=== PATIENT | female | born 1930 | race Caucasian/White ===

== ENCOUNTER 2019-09-01 06:43 | Inpatient (IN) ==
--- NOTE | 2019-08-25 14:02 | PAT Medication Instructions ---
Medication Instructions Date of Service August 25, 2019 Home Medications apixaban [Eliquis] 2.5 mg PO BID atenolol 12.5 mg PO BID cholecalciferol (vitamin D3) 25 mcg PO QAM diltiazem HCl [Cardizem CD] 120 mg PO QAM furosemide [Lasix] 20 mg PO DIRECTED furosemide [Lasix] 40 mg PO DIRECTED hydrocodone-acetaminophen [Bend] 0.5 tab PO Q6H PRN levothyroxine 50 mcg PO QAM polyethylene glycol 3350 [Miralax] 17 g PO DAILY PRN potassium chloride 20 meq PO DIRECTED pravastatin 20 mg PO Q OTHER DAY ASK your prescriber and surgeon apixaban [Eliquis] 2.5 mg PO BID DO NOT take the morning of surgery cholecalciferol (vitamin D3) 25 mcg PO QAM furosemide [Lasix] 20 mg PO DIRECTED furosemide [Lasix] 40 mg PO DIRECTED polyethylene glycol 3350 [Miralax] 17 g PO DAILY PRN potassium chloride 20 meq PO DIRECTED Take morning of surgery With a small sip of water, OTHERWISE NOTHING TO EAT OR DRINK AFTER MIDNIGHT: atenolol 12.5 mg PO BID diltiazem HCl [Cardizem CD] 120 mg PO QAM hydrocodone-acetaminophen [Bend] 0.5 tab PO Q6H PRN (if needed, may be taken up to four hours before surgery) levothyroxine 50 mcg PO QAM Take evening before surgery atenolol 12.5 mg PO BID hydrocodone-acetaminophen [Bend] 0.5 tab PO Q6H PRN (if needed) polyethylene glycol 3350 [Miralax] 17 g PO DAILY PRN (if needed) pravastatin 20 mg PO Q OTHER DAY (if scheduled) Other Notes If you have any questions please call us at [phone] or [phone] or [phone] or [phone]
--- NOTE | 2019-08-25 14:20 | Anesthesiology Consultation ---
Date of Service August 25, 2019 Assessment & Plan (1) Encounter for pre-operative examination: COVID Status: As of 08/24 assessment, patient denies travel to endemic area, known exposure/sick contacts, or symptoms of COVID19. Patient instructed to follow strict social distancing guidelines, wear a mask in public and avoid travel for 14 days prior to surgery. She lives in [facility] in independent living in an apartment. There have been no cases of COVID19 there . She states all residents have to wear masks at all times, and they have the option of eating at the community cafeteria but all tables are spread at least six feet apart. Preoperative COVID19 testing to be completed prior to surgery. Patient made aware to self-isolate as much as possible between COVID testing and surgery. Cardiology Clearance 08/24/19 = "considered a low to intermediate risk for her upcoming left laparoscopic nephrectomy...may hold Eliquis 2 days prior to procedure." Chart Review Chart Review: Acceptable Risk for Surgery and Patient seen in Pre Admission Testing Teaching & Discussion Instructed NPO after midnight before surgery, except medications with 15 cc of water. Medication instructions provided according to the PAT guidelines. History Surgery Operation Date: 09/01/19 08:10 Proposed Procedures p Left Hand Assisted Laparoscopic Nephrectomy - Manuel Concepcion MD Height/Weight Height: 4 ft 11 in Weight: 47.2 kg Allergies Allergy/AdvReac Type Severity Reaction Status Date / Time Gadolinium-Containing Allergy Unknown HIVES, Verified 08/18/19 15:13 Contrast Medi VASCULITIS latex Allergy Unknown REDNESS, Verified 08/18/19 15:13 RASH meperidine Allergy Unknown MOUTH Verified 08/18/19 15:13 SWELLING, FINGER SWELLING scopolamine Allergy Unknown FINGERS Verified 08/18/19 15:13 AND MOUTH SWELLING amitriptyline AdvReac Unknown INSOMNIA Verified 08/18/19 15:13 RESTLESSNESS baclofen AdvReac Unknown INSOMNIA, Verified 08/18/19 15:13 RESTLESSNESS cyclobenzaprine AdvReac Unknown INSOMNIA, Verified 08/18/19 15:13 RESTLESSNESS diphenhydramine AdvReac Unknown INSOMNIA, Verified 08/18/19 15:13 RESTLESSNESS fentanyl AdvReac Unknown THOUGHTS Verified 08/18/19 15:13 OF -WITH FENTANYL PATCH quinine AdvReac Unknown TINNITUS Verified 08/18/19 15:13 Medications Home Medications Medication Instructions Recorded Confirmed Last Taken apixaban [Eliquis] 2.5 mg PO BID 08/18/19 08/18/19 Unknown atenolol 12.5 mg PO BID 08/18/19 08/18/19 Unknown cholecalciferol (vitamin D3) 25 mcg PO QAM 08/18/19 08/18/19 Unknown [Vitamin D3] diltiazem HCl [Cardizem CD] 120 mg PO QAM 08/18/19 08/18/19 Unknown furosemide [Lasix] 20 mg PO DIRECTED 08/18/19 08/18/19 Unknown furosemide [Lasix] 40 mg PO DIRECTED 08/18/19 08/18/19 Unknown hydrocodone-acetaminophen [[place]] 0.5 tab PO Q6H PRN 08/18/19 08/18/19 Unknown levothyroxine 50 mcg PO QAM 08/18/19 08/18/19 Unknown polyethylene glycol 3350 [Miralax] 17 g PO DAILY PRN 08/18/19 08/18/19 Unknown potassium chloride 20 meq PO DIRECTED 08/18/19 08/18/19 Unknown pravastatin 20 mg PO Q OTHER DAY 08/18/19 08/18/19 Unknown Past Medical History Medical History Atrial fibrillation cardizem and eliquis no cardioversions> follows [facility] Basal cell carcinoma with mohs and other surgical removal> has had all over body High blood pressure Hypothyroidism Mitral valve prolapse Osteoarthritis Rheumatoid arthritis Shortness of breath related to thoracic duct problem Exercise / Class Metabolic Activity III < 4 Walking/Shop/Light housework (+mild SOB with ambulation 2/2 chronic pleural effusions; no chest pain) Past Surgical History Surgical History Carpal tunnel syndrome bilat H/O varicose vein stripping bilat H/O: section x3 H/O: hysterectomy History of cardiac cath over 5 yrs ago> no stents > History of colonoscopy History of esophagogastroduodenoscopy (EGD) x2 History of thoracic surgery thoracic duct nicked during a back surgery> still leaking> august 2015> [facility]> paracentesis x2 > records with [facility] per patient> followed dr. brian chowdary for thoracic at [place]. no longer follows with him History of tonsillectomy History of tooth extraction History of trigger finger with release left thumb /right index Hx of bilateral cataract extraction Hx of partial thyroidectomy Previous back surgery x5 to thoracic and lumbar> no cervical> hardware present S/P Mohs surgery for basal cell carcinoma on face Past Anesthesia History No Hx of Anesthesia Complications and No Family Hx of Anesthesia Complications History of PONV No Hx of Motion Sickness and History of PONV (with hyster only) Social History Smoking Status: Never smoker Do You Dip or Chew Tobacco: No Hx Alcohol Use: Yes alcohol intake frequency: holidays/special occasions only Hx Substance Use: No substance use type: does not use Review of Systems Pt denies any recent chest pain, shortness of breath above baseline, palpitations, cough, fever or URI. Physical Exam Vital Signs BP: 121/78 P: 90bpm SPO2: 96% RA T: 98.4 F R: 16 ENMT Mouth: + dental restorations (gold crowns); no chipped teeth and no loose teeth Thyromental Distance: > or= 3.5 Finger Breadths (3.5) Mallampati Class: I Neck normal visual inspection, + short neck and + limited neck extension (moderately) Respiratory normal respiratory effort Auscultation: lungs clear to auscultation bilaterally Cardiovascular Rate/Rhythm: regular rate (borderline tachy); + abnormal rhythm (irreg irreg) Heart Sounds: no murmur Extremities: no edema Testing Laboratory Results 08/25/19 14:44 08/25/19 14:44 Urine Color Yellow 08/25/19 14:44 Urine Appearance Clear (Clear) 08/25/19 14:44 Urine pH 5.0 (4.5-7.5) 08/25/19 14:44 Ur Specific [place] 1.014 (1.000-1.030) 08/25/19 14:44 Urine Protein Negative (Negative) 08/25/19 14:44 Urine Glucose (UA) Negative (Negative) 08/25/19 14:44 Urine Ketones Negative (Negative) 08/25/19 14:44 Urine Nitrite Negative (Negative) 08/25/19 14:44 Ur Leukocyte Esterase Negative (Negative) 08/25/19 14:44 08/25/19 14:44 Urine Culture - Final Urine,Clean Catch Three types of organisms present, all low counts probable skin bry. No further identifications or sensitivities to follow. Electrocardiogram Date: 08/25/19 Findings: + AFIB @ (86bpm) NSTWA. Compared to EKG from 11/26/13, afib has replaced SR. T wave inversion now evident in inferior leads (lead III). T wave amplitude has decreased in anterior leads. Chest X-Ray Date: 08/25/19 IMPRESSION: 1. Very small bilateral pleural effusions with mild right basilar atelectatic change. Echocardiogram Date: 06/11/18 EF: 60% LV is normal size with normal function. RV normal size and normal function. Mild to moderate mitral and tricuspid regurgitation. Estimated PASP is 38 mmHg which is top of normal. Stress Test Date: 08/20/19 Type: nuclear Based on EKG criteria, this test is nondiagnostic. Based upon the nuclear imaging findings there is no evidence of myocardial ischemia or infarction. Study is normal. It is comparable to previous studies.
--- NOTE | 2019-08-25 15:06 | XRay Report ---
XR chest Pre-admission PA/Lat CLINICAL HISTORY: pat preoperative evaluation COMPARISON STUDY: 11/26/2013 FINDINGS: Small right pleural effusion. Trace pleural effusion left base. Atelectasis right base. Mid and upper lungs are clear. Postoperative changes to the thoracolumbar spine increased in prominence compared to the prior exam. IMPRESSION: 1. Very small bilateral pleural effusions with mild right basilar atelectatic change. ACT 112: Negative or not required by law. The above report was generated using voice recognition software. It may contain grammatical, syntax or spelling errors. Electronically signed by: Bernardo Krishnamurthy M.D. 08/25/2019 3:04 PM
[2019-08-25 16:03] LABS: Appearance Urine Clear (Clear); Bilirubin Urine Negative (Negative); Blood Urine Negative (Negative); Color Urine Yellow; Glucose Urine UA Negative (Negative); Ketones Urine Negative (Negative); Leukocyte Esterase Urine Negative (Negative); Nitrite Urine Negative (Negative); Protein Urine Negative (Negative); Specific Gravity Urine 1.014 (1.000-1.030); Urobilinogen Urine Negative (Negative)
[2019-08-25 16:04] LABS: Basophils # (auto) 0.04 K/uL (0-0.2); Basophils % (auto) 0.7 %; Eosinophils # (auto) 0.12 K/uL (0-0.5); Eosinophils % (auto) 2.1 %; Hematocrit (blood only) 42.3 % (37-47); Hemoglobin 13.6 g/dL (12.0-16.0); Immature Granulocytes # (auto) 0.02 K/uL (0.00-0.02); Immature Granulocytes % (auto) 0.3 %; Lymphocytes # (auto) 0.72 K/uL (1.2-3.4); Lymphocytes % (auto) 12.4 %; Mean Corpuscular Hemoglobin 28.6 pg (25-34); Mean Corpuscular Hgb Conc 32.2 g/dL (32-36); Mean Corpuscular Volume 89.1 fL (80-100); Mean Platelet Volume 10.8 fL (7.4-10.4); Monocytes # (auto) 0.66 K/uL (0.11-0.59); Monocytes % (auto) 11.4 %; Neutrophils # (auto) 4.24 K/uL (1.4-6.5); Neutrophils % (auto) 73.1 %; Platelet Count 275 K/uL (130-400); RDW Coefficient of Variation 13.7 % (11.5-14.5); RDW Standard Deviation 44.6 fL (36.4-46.3); Red Blood Count 4.75 M/uL (4.2-5.4)
[2019-08-25 16:10] LABS: BUN Creatinine Ratio 18.1 (10-20); Creatinine Clr Calc Pharmacy 16.1 ml/min; Est GFR (African American) 32.3; Est GFR (Non-African American) 27.9; Potassium 4.1 mmol/L (3.5-5.1)
--- NOTE | 2019-08-26 06:56 | Electrocardiogram Report ---
Test Reason : Blood Pressure : / mmHG Vent. Rate : 086 BPM Atrial Rate : 115 BPM P-R Int : 000 ms QRS Dur : 082 ms QT Int : 358 ms P-R-T Axes : 000 081 -11 degrees QTc Int : 428 ms Atrial fibrillation Nonspecific T wave abnormality Abnormal ECG When compared with ECG of 26-NOV-2013 16:15, Atrial fibrillation has replaced Sinus rhythm T wave inversion now evident in Inferior leads T wave amplitude has decreased in Anterior leads Confirmed by Jose R Monzon ([id number]) on 08/26/2019 6:55:59 AM Referred By: Manuel Concepcion Confirmed By:Jose R Monzon
[~2019-09-01 06:43] MED LIST: CEFAZOLIN 2000MG 2,000 MG/15 ML SYR IV SCH; HEPARIN SOD 5,000 UNIT/0.5 ML VIAL SQ SCH; LACTATED RINGER'S 1,000 ML IV SCH; SODIUM CHLORIDE 0.9% 1000ML IV SCH
--- NOTE | 2019-09-01 07:50 | History & Physical Bridge Note ---
Date of Service September 01, 2019 History & Physical Bridge Note I have examined the patient, reviewed the History & Physical and in the interval since the performance of the History & Physical I have noted the following changes of clinical significance: no changes noted
[2019-09-01] MEDS ORDERED: DEXAMETHASONE SOD INJ 4 MG/ML VIAL ONE (08:31)
[2019-09-01] MEDS ORDERED: MoRPHine SULFATE 2 MG/ML CARP ONE (08:31)
[2019-09-01] MEDS ORDERED: GLYCOPYRROLATE 0.2 MG/ML VIAL ONE (08:31)
[2019-09-01] MEDS ORDERED: LARYING-O-JET KIT (LTA) ONE (08:31)
[2019-09-01] MEDS ORDERED: ROCURONIUM BROMIDE 10 MG/ML 5 ML VIAL IV ONE (08:31)
[2019-09-01] MEDS ORDERED: LIDOCAINE HCL 2% 2 ML VIAL/AMP(20MG/ML) INFIL ONE (08:31)
[2019-09-01] MEDS ORDERED: PROPOFOL IV EMULSION 10 MG/ML 20 ML VIAL IV ONE (08:31)
[2019-09-01] MEDS ORDERED: NEOSTIGMINE METHYLSULFATE 5 MG/5 ML SYR ONE (08:31)
[2019-09-01] MEDS ORDERED: ePHEDrine sulfate 50 MG/ML SYR ONE (08:31)
[2019-09-01] MEDS ORDERED: ONDANSETRON INJ 2 MG/ML 2 ML VIAL ONE (08:31)
[2019-09-01] MEDS ORDERED: PHENYLEPHRINE 100MCG/ML 5ML SYR ONE (08:31)
[2019-09-01] MEDS ORDERED: ONDANSETRON INJ 2 MG/ML 2 ML VIAL IV PRN ×2 (08:52→13:53)
[2019-09-01] MEDS ORDERED: ePHEDrine sulfate 50 MG/ML AMP IV PRN (08:52)
[2019-09-01] MEDS ORDERED: BUPIVACAINE 0.5 % 5 MG/1 ML MPF 30ML VIAL ONE (09:38)
[2019-09-01] MEDS ORDERED: ALBUMIN HUMAN 5% 12.5 GM/250 ML VIAL IV ONE (10:42)
[2019-09-01] MEDS: MoRPHine SULFATE 10 MG/ML CARP/VIAL IV PRN ×2 (12:17→13:00)
--- NOTE | 2019-09-01 12:17 | Operative Report ---
PG Post Operative Report Pre & Post Diagnosis Operation Date: 09/01/19 09:05 Pre-Op Diagnosis: Left renal mass Post-Op Diagnosis: Suspected metastatic renal cell carcinoma I identified the patient and participated in the time-out.: Yes Procedure Operation Date: 09/01/19 09:05 Actual Procedures p Exploratory laparotomy, excision of omental nodule, renal mass biopsy(Left) - Manuel Concepcion MD Surgeon Memo Concepcion MD Collet Gluer Lisa Claire; Jolly Levine Estimated Blood Loss 15 Findings Consistent with Post-Op Diagnosis Specimens Omental nodule; renal mass biopsy x3 (core) Description of Procedure Patient was identified in the preoperative holding area, appropriate informed consents were reviewed and completed and she was transported to the operating suite. Upon arrival she received appropriate preoperative antibiotics as well as general anesthesia. She was placed in a [id number] left side up lateral decubitus position. Preoperative imaging was brought up on her screen and she was sterilely prepped and draped in standard fashion. Of note, her mass was easily palpable through the abdominal wall. It was very firm and seem to be notably more advanced than what we visualized on imaging. She is very small in stature and my HandPort incision was marked over the inferior aspect of the firm mass. I carried this through the skin and superficial tissues until I could sequentially work my way through her abdominal musculature. After a piercing through the peritoneum I immediately could visualize the mass. It appeared to have eroded through the mesentery of the bowel. It was very nodular and rockhard and mobile. I then felt several omental nodules. The largest nodule was excised as it was on the periphery of the omentum. This was approximately 1 cm in size. Other nodules were all much smaller0.5cm. Several of these were close in proximity to blood vessels and I elected to not remove them. Before making further decisions I attempted to incise the white line of [place] and see if I could reflect the colon off of the surface of the mass. Unfortunately it was quite adherent. I therefore did not try to entirely mobilize the colon. I debated a trans-mesenteric approach to continue the nephrectomy but felt that this was a unjustified and far too risky. At this time I felt that it was necessary to abort nephrectomy and conclude the case with this exploration. I did pass a core biopsy device and take 3 distinct cores from passenger relations representative areas of the hard mass. These were passed off the table together is 3 cores labeled renal mass biopsy. Ensured meticulous hemostasis before reapproximating the layers of the abdominal wall utilizing 0 Vicryl sutures in running fashion. I then infiltrated all layers with half percent Marcaine and closed the skin with a 4-0 Monocryl. Dermabond was placed over the incision and she was reversed of anesthesia and taken to the PACU in stable condition. She tolerated the procedure well. Lisa Claire and Jolly Levine were present and scrubbed throughout the case. There were no complications. I attest to the content of the Intraoperative Record and any orders documented therein. Any exceptions are noted below.
[2019-09-01 12:18] LABS: Basophils # (auto) 0.01 K/uL (0-0.2); Basophils % (auto) 0.2 %; Eosinophils # (auto) 0.03 K/uL (0-0.5); Eosinophils % (auto) 0.6 %; Hematocrit (blood only) 34.2 % (37-47); Hemoglobin 11.3 g/dL (12.0-16.0); Immature Granulocytes # (auto) 0.02 K/uL (0.00-0.02); Immature Granulocytes % (auto) 0.4 %; Lymphocytes # (auto) 0.54 K/uL (1.2-3.4); Lymphocytes % (auto) 10.3 %; Mean Corpuscular Hemoglobin 28.6 pg (25-34); Mean Corpuscular Volume 86.6 fL (80-100); Mean Platelet Volume 9.6 fL (7.4-10.4); Monocytes # (auto) 0.42 K/uL (0.11-0.59); Neutrophils # (auto) 4.22 K/uL (1.4-6.5); Neutrophils % (auto) 80.5 %; Platelet Count 182 K/uL (130-400); RDW Coefficient of Variation 13.7 % (11.5-14.5); RDW Standard Deviation 43.3 fL (36.4-46.3); Red Blood Count 3.95 M/uL (4.2-5.4); White Blood Count 5.24 K/uL (4.8-10.8)
[2019-09-01 12:35] LABS: BUN Creatinine Ratio 21.1 (10-20); Calcium 9.8 mg/dl (8.5-10.1); Creatinine Clr Calc Pharmacy 18.3 ml/min; Est GFR (African American) 37.9; Est GFR (Non-African American) 32.7; Potassium 4.1 mmol/L (3.5-5.1)
[2019-09-01] MEDS ORDERED: POLYETHYLENE (MIRALAX) 17 GM PACK PO PRN (13:53)
[2019-09-01] MEDS ORDERED: OXYCODONE HCL IR 5 MG TAB (IMMEDIATE RELEASE) PO PRN (13:53)
[2019-09-01] MEDS ORDERED: MoRPHine SULFATE 2 MG/ML CARP IV PRN (13:53)
[2019-09-01] MEDS ORDERED: ACETAMINOPHEN 325 MG TAB PO PRN (13:53)
[2019-09-01] MEDS: LACTATED RINGER'S 1,000 ML IV SCH ×2 (14:22→23:29)
--- NOTE | 2019-09-01 14:24 | Anesthesiology Progress Note ---
Date of Service September 01, 2019 Anesthesia Post Procedure Vital Signs Vital Signs: Temp Pulse Pulse Resp BP BP Pulse Ox 09/01/19 14:02 36.5 C 75 18 94/56 L 94 09/01/19 13:15 79 22 103/46 L 98 09/01/19 13:05 74 20 97/40 L 97 09/01/19 12:55 69 24 99/46 L 97 09/01/19 12:45 36.5 C 75 19 100/45 L 97 09/01/19 12:35 75 20 97/49 L 100 09/01/19 12:25 85 23 104/51 L 100 09/01/19 12:15 75 22 108/48 L 95 09/01/19 12:05 79 20 109/57 L 99 09/01/19 11:55 88 25 H 122/56 L 100 09/01/19 11:48 36.2 C L 102 H 19 126/52 L 100 09/01/19 07:17 36.8 C 98 H 18 132/69 95 Transfer of Care Handoff Completed per policy Notes Mental Status: alert / awake / arousable and participated in evaluation Patient Amnestic to Procedure: Yes Nausea / Vomiting: adequately controlled Pain: adequately controlled Airway Patency, RR, SpO2: stable & adequate BP & HR: stable & adequate Hydration State: stable & adequate Anesthetic Complications: no major complications apparent and Pt Satisfied with anesthetic care
[2019-09-01] MEDS: OXYCODONE HCL IR 5 MG TAB (IMMEDIATE RELEASE) PO PRN ×2 (15:41→23:29)
[2019-09-01] MEDS ORDERED: PRAVASTATIN SOD 20 MG TAB PO SCH (16:00)
[2019-09-01] MEDS ORDERED: FUROSEMIDE 40 MG TAB PO SCH (16:00)
[2019-09-01] MEDS: MoRPHine SULFATE 2 MG/ML CARP IV PRN (19:40)
[2019-09-01] MEDS: CEFAZOLIN 2000MG 2,000 MG/15 ML SYR IV SCH (20:15)
[2019-09-01] MEDS: HEPARIN SOD 5,000 UNIT/0.5 ML VIAL SQ SCH (20:16)
[2019-09-01] MEDS: POTASSIUM CHLORIDE 20 MEQ TABCR PO SCH ×2 (20:17→21:26)
[2019-09-01] MEDS: ATENOLOL 25 MG TABLET PO SCH (20:18)
[2019-09-02] MEDS: OXYCODONE HCL IR 5 MG TAB (IMMEDIATE RELEASE) PO PRN ×3 (04:46→16:48)
[2019-09-02] MEDS: CEFAZOLIN 2000MG 2,000 MG/15 ML SYR IV SCH (04:47)
[2019-09-02 05:34] LABS: Hematocrit (blood only) 35.9 % (37-47); Hemoglobin 11.9 g/dL (12.0-16.0); Immature Granulocytes # (auto) 0.02 K/uL (0.00-0.02); Immature Granulocytes % (auto) 0.3 %; Lymphocytes # (auto) 0.44 K/uL (1.2-3.4); Lymphocytes % (auto) 5.6 %; Mean Corpuscular Hgb Conc 33.1 g/dL (32-36); Mean Corpuscular Volume 87.6 fL (80-100); Monocytes # (auto) 0.73 K/uL (0.11-0.59); Monocytes % (auto) 9.3 %; Neutrophils # (auto) 6.64 K/uL (1.4-6.5); Neutrophils % (auto) 84.8 %; Platelet Count 211 K/uL (130-400); White Blood Count 7.83 K/uL (4.8-10.8)
[2019-09-02 06:18] LABS: BUN Creatinine Ratio 18.9 (10-20); Calcium 9.6 mg/dl (8.5-10.1); Creatinine Clr Calc Pharmacy 13.9 ml/min; Est GFR (African American) 27.1; Est GFR (Non-African American) 23.4; Potassium 4.9 mmol/L (3.5-5.1)
[2019-09-02] MEDS ORDERED: LEVOTHYROXINE SODIUM 50 MCG TABLET PO SCH (06:30)
--- NOTE | 2019-09-02 07:42 | Urology Progress Note ---
Date of Service September 02, 2019 Assessment & Plan (1) Renal mass: Suspected renal cell carcinoma Unfortunately she proved to have an unresectable tumor I suspect she has metastatic disease with omental studding/carcinomatosis Unfortunately think she has progressed relatively rapidly over the last several weeks as her intraoperative findings were clearly beyond the findings on imaging I have discussed my operative findings with the patient and she is extremely understanding but understandably disappointed as well Physically she is recovering appropriately Remove the catheter this morning Likely discharge home this afternoon Pathology pending Subjective Postop day #1 status post ex lap, renal mass biopsy and excision of suspected metastatic nodule from omentum Overall feels okay Pain is been tolerable She has ambulated within the room She is tolerating a diet but has limited appetite Justifiably disappointed that we are unable to complete the nephrectomy Physical Exam Physical Exam: Incision healing appropriatelyno bruising, no erythema, no crepitus, nontender Constitutional: well developed and well nourished Respiratory: no respiratory distress Cardiovascular: Extremities: no pedal edema Gastrointestinal (Abdomen): Inspection/Auscultation: abdomen normal to inspection Results & Data Vital Signs (Past 12 Hours) Vital Signs Temp Pulse Resp BP Pulse Ox 09/02/19 07:11 36.3 C L 86 18 98/52 L 92 09/02/19 03:41 36.5 C 81 20 106/56 L 94 09/01/19 23:00 36.5 C 90 18 116/63 93 PG Care Time/CCT Total # of Minutes Spent Total Time Spent with Patient: Total time spent is greater than 50% in coordination of care (as documented) at patient's floor/unit and/or counseling patient: Coding Level of Care Code 66657 Subseq Hosp Care Lvl 2 Diagnoses Renal mass N28.89
[2019-09-02] MEDS: ATENOLOL 25 MG TABLET PO SCH (08:00)
[2019-09-02] MEDS: HEPARIN SOD 5,000 UNIT/0.5 ML VIAL SQ SCH (08:00)
[2019-09-02] MEDS ORDERED: dilTIAZem HCL 120 MG CAPCR PO SCH (09:00)
[2019-09-02] MEDS ORDERED: CHOLECALCIFEROL 1,000 UNITS 25 MCG TAB PO SCH (09:00)
[2019-09-02] MEDS ORDERED: POTASSIUM CHLORIDE 20 MEQ TABCR PO SCH (09:00)
[2019-09-02] MEDS ORDERED: FUROSEMIDE 20 MG TAB PO SCH (09:00)
[2019-09-02] MEDS: LACTATED RINGER'S 1,000 ML IV SCH (09:26)
[2019-09-02] MEDS: MoRPHine SULFATE 2 MG/ML CARP IV PRN (13:37)
--- NOTE | 2019-09-09 06:06 | Coding Query ---
PATHOLOGY To promote full compliance with coding requirements relating to patient care, physician participation is requested in all cases of c developer uncertainty. Please assist us with the question(s) below: Please review the Pathology report and please document any relevant diagnosis(es) below: Diagnosis(es): Thank you Rosalva GERARD
--- NOTE | 2019-09-15 07:31 | Discharge Summary ---
Date of Service September 15, 2019 Admission HPI Per Admitting Provider 88-year-old female brought to the hospital for planned left radical nephrectomy secondary to an enlarging left renal mass Principal Diagnosis B-cell lymphoma Discharge Data Allergies Allergy/AdvReac Type Severity Reaction Status Date / Time Gadolinium-Containing Allergy Unknown HIVES, Verified 09/01/19 07:13 Contrast Medi VASCULITIS latex Allergy Unknown REDNESS, Verified 09/01/19 07:13 RASH meperidine Allergy Unknown MOUTH Verified 09/01/19 07:13 SWELLING, FINGER SWELLING scopolamine Allergy Unknown FINGERS Verified 09/01/19 07:13 AND MOUTH SWELLING amitriptyline AdvReac Unknown INSOMNIA Verified 09/01/19 07:13 RESTLESSNESS baclofen AdvReac Unknown INSOMNIA, Verified 09/01/19 07:13 RESTLESSNESS cyclobenzaprine AdvReac Unknown INSOMNIA, Verified 09/01/19 07:13 RESTLESSNESS diphenhydramine AdvReac Unknown INSOMNIA, Verified 09/01/19 07:13 RESTLESSNESS fentanyl AdvReac Unknown THOUGHTS Verified 09/01/19 07:13 OF -WITH FENTANYL PATCH quinine AdvReac Unknown TINNITUS Verified 09/01/19 07:13 Procedures Performed Operation Date: 09/01/19 09:05 Actual Procedures p Exploratory laparotomy, excision of omental nodule, renal mass biopsy(Left) - Manuel Concepcion MD Hospital Course (1) Large B-cell lymphoma: Patient was brought to the operating room for planned left radical nephrectomy but immediately upon entering the peritoneum we encountered carcinomatosis and significantly more advanced disease than appreciated on preoperative imaging. I biopsied the kidney itself as well as some of the peritoneal studding and closedaborting the plan for nephrectomy. She recovered appropriately from the surgery, catheter was removed on the morning of day 1. She was ambulatory, she was tolerating a diet she was discharged on the afternoon of postoperative day #1 Pathology from the carcinomatosis and kidney itself both revealed a large B-cell lymphoma. Total Time Total Time Spent Total Time Spent (In Minutes): 20 Total Time Includes: Examination of the Patient, Discharge Planning, Medication Reconciliation, Communication With Other Providers and Other Discharge Plan Discharge Items Patient Disposition: Home - Self-Care Reason For Visit: Round Mass- Suspected Cancer Discharge Diagnosis: Renal mass - suspected cancer Activity: Per Instructions section Lifting: No more than 10 pounds Bathing Comment: No tub baths or soaking, okay to shower in 1 day. Sexual Activity: Wait until after follow-up appointment Exercise/Sports: Wait until after follow-up appointment Driving/Machine Use: Do not drive while on narcotic medication Non-emergency contact: Surgeon and Urologist Call non-emergency contact if: your pain is not controlled, your temperature is above 101, your wound has increased redness and your wound has increased drainage Follow-up/Referrals: Manuel Concepcion MD [Physician] - 09/23/19 10:30 am Jefry Hawkins M.D. [Primary Care Provider] - Diet: Regular Addtl Attending Provider Instructions: Please take all medications as prescribed and keep all follow-ups as scheduled. Please call our office at [phone] with any questions, concerns or need to reschedule appointments for any reason. We are happy to assist you. Do not take Eliquis today or tomorrow. Please resume your Eliquis on Wednesday September 04, 2019. Recovering at home: We recommend having someone with you for the first few days after surgery to help care for you. It is okay to shower tomorrow. Please avoid swimming, bathing or using hot tub until incisions are well healed. Avoid driving until you are not requiring pain medication any further. Walk at least a few times a day. Increase your distance, as you feel able. Stairs in your home are okay. Please avoid strenuous or sexual activity until your follow-up. We recommend using stool softener (i.e. Colace) to prevent constipation and straining, especially the first two weeks post operatively. Call [facility] at [phone] if you experience: Chest pain or trouble breathing (call [phone] or go to the hospital). Fever of 101F or higher Symptoms of infection at incision site, including redness or swelling, warmth, or bad-smelling drainage If you have catheter, and you notice: o Bloody urine or drainage that is dark red or has large clots (Please remember a small amount of blood is normal) o No drainage from the catheter for more than 6 hours o The catheter comes out of your bladder Pain that is not controlled with medicines Pending Studies at Discharge: Yes Studies:: Pathology Stand-Alone Forms: My [facility], Smoking Cessation Medications and DC Order Prescriptions: New docusate sodium [Colace] 100 mg capsule 100 mg PO BID Qty: 60 RF: 0 oxycodone-acetaminophen [Percocet] 5-325 mg tablet 1 tab PO BID PRN (Reason: pain) Qty: 10 RF: 0 Continued furosemide [Lasix] 40 mg Tablet 40 mg PO DIRECTED RF: 0 pravastatin 40 mg Tablet 20 mg PO Q OTHER DAY RF: 0 hydrocodone-acetaminophen [[place]] 5-325 mg Tablet 0.5 tab PO Q6H PRN (Reason: Pain) RF: 0 atenolol 25 mg Tablet 12.5 mg PO BID RF: 0 levothyroxine 50 mcg Tablet 50 mcg PO QAM RF: 0 diltiazem HCl [Cardizem CD] 120 mg Capsule,Extended Release 24hr 120 mg PO QAM RF: 0 furosemide [Lasix] 20 mg Tablet 20 mg PO DIRECTED RF: 0 polyethylene glycol 3350 [Miralax] 17 gram/dose Powder 17 g PO DAILY PRN (Reason: Constipation) RF: 0 cholecalciferol (vitamin D3) [Vitamin D3] 25 mcg (1,000 unit) Tablet 25 mcg PO QAM RF: 0 potassium chloride 20 mEq Tablet Extended Release 20 meq PO DIRECTED RF: 0 Eliquis 2.5 mg Tablet 2.5 mg PO BID Qty: 0 RF: 0 Discharge Orders: Discharge Order (Routine); Ordered 09/02/19 Ordered By: Lisa Claire Admission Data Admit Date/Time: 09/01/19 11:57 Attending Provider: Manuel Concepcion Admit Provider: Manuel Concepcion Primary Care Provider: Jefry Hawkins Other Providers: Miguel Ángel Atwood Other Interventions: Discharge Summary Assessment (RN) Last Done: 09/02/19 15:36 DC Date/Time DO NOT enter until pt leaves facility: 09/02/19 16:51 Coding Level of Care Code D/C Day Management <30 mins Diagnoses Large B-cell lymphoma C85.10
== END 2019-09-02 16:51 | disposition home or self-care (01) | DRG 822 ==
LOC: ASU 06:43 → 3N 11:57